=== PATIENT | female | born 1975 | race African-American/Black ===

== ENCOUNTER 2024-03-03 14:19 | Day surgery (SDC) | payer OTHER ==
[2024-03-03] MEDS ORDERED: Depo-Medrol 40 MG/ML IM ONE (14:20)
[2024-03-03] MEDS ORDERED: BUPIVACAINE 0.5% VIAL IJ ONE (14:20)
[2024-03-03] MEDS ORDERED: XYLOCAINE-MPF 1% 5ML SDV IJ ONE (14:20)
--- NOTE | 2024-03-03 16:57 | XRAY ---
Indication: Right shoulder injection. Intraoperative fluoroscopy provided for 2 seconds. 2 digital spot images submitted for interpretation demonstrates needle tip projecting over the right glenohumeral joint superiorly. Small amount of contrast injected for needle tip placement. Correlate with intraoperative findings/report.
--- NOTE | 2024-03-04 09:26 | XRAY ---
7 seconds of fluoroscopy was used in surgery for a right intra-articular shoulder injection.
== END 2024-03-03 16:50 | disposition home or self-care (01) ==
LOC: SDC-PAIN 14:19
PROVIDERS: ATTEND Psychiatry & Neurology Pain Medicine
DX: M19.011 Primary osteoarthritis, right shoulder (principal)
CPT/HCPCS: 20610; 73030; 77002; J1010; Q9966

== ENCOUNTER 2024-06-23 14:12 | Day surgery (SDC) | payer OTHER ==
[2024-06-23] MEDS ORDERED: Sodium Chloride 0.9(Preservative Free) 10 ML IJ ONE (14:13)
[2024-06-23] MEDS ORDERED: Depo-Medrol 40 MG/ML IM ONE (14:13)
[2024-06-23] MEDS ORDERED: LIDOCAINE HCL 1% AMPUL 5 ML IJ ONE (14:13)
[2024-06-23] MEDS ORDERED: DIPRIVAN 200 MG/20 ML IV ONE (15:28)
--- NOTE | 2024-06-23 16:40 | XRAY ---
Indication: Lumbar MIGDALIA. Intraoperative fluoroscopy provided for 19 seconds. 2 digital spot image submitted for interpretation demonstrates posterior needle tip projecting posterior to lumbosacral junction interspace. Small amount of contrast injected for needle tip placement. Correlate with intraoperative findings/report.
--- NOTE | 2024-06-23 16:57 | XRAY ---
19 seconds of fluoroscopy was used in surgery for a lumbar MIGDALIA.
[2024-06-23] MEDS ORDERED: Lactated Ringers 1,000 ML IV ONE (18:04)
== END 2024-06-23 16:22 | disposition home or self-care (01) ==
LOC: SDC-PAIN 14:12
PROVIDERS: ATTEND Psychiatry & Neurology Pain Medicine
DX: M54.16 Radiculopathy, lumbar region (principal)
CPT/HCPCS: 62323; 72100; 77003; J2704; Q9966

== ENCOUNTER 2024-07-29 11:33 | Day surgery (SDC) | payer OTHER ==
[2024-07-29] MEDS ORDERED: Xylocaine-Mpf 2% 5 Ml Vial IJ ONE (11:34)
[2024-07-29] MEDS ORDERED: DIPRIVAN 200 MG/20 ML IV ONE (12:49)
--- NOTE | 2024-07-29 14:42 | XRAY ---
Indication: Bilateral L4-S1 MBB. Intraoperative fluoroscopy provided for 24 seconds. Single digital spot image submitted for interpretation demonstrates posterior needle tips projecting over expected left and right L4-S1 nerve roots. Correlate with intraoperative findings/report.
--- NOTE | 2024-07-29 14:45 | XRAY ---
24 seconds of fluoroscopy was used in surgery for a bilateral L4-S1 MBB.
== END 2024-07-29 13:25 | disposition home or self-care (01) ==
LOC: SDC-PAIN 11:33
PROVIDERS: ATTEND Psychiatry & Neurology Pain Medicine
DX: M47.816 Spondylosis without myelopathy or radiculopathy, lumbar region (principal)
CPT/HCPCS: 64493; 64494; 72020; 77002; J2704

== ENCOUNTER 2024-09-29 11:05 | Day surgery (SDC) | payer OTHER ==
[2024-09-29] MEDS ORDERED: BUPIVACAINE 0.5% VIAL IJ ONE (11:06)
[2024-09-29] MEDS ORDERED: propofoL IV ONE ×2 (12:10→12:22)
--- NOTE | 2024-09-29 14:39 | XRAY ---
Indication: Bilateral L4-S1 MBB. Intraoperative fluoroscopy provided for 32 seconds. Single digital spot image submitted for interpretation demonstrates posterior needle tips projecting over the expected left and right L4-S1 nerve roots. Correlate with intraoperative findings/report.
--- NOTE | 2024-09-29 14:51 | XRAY ---
32 seconds of fluoroscopy was used in surgery for a bilateral L4-S1 MBB.
== END 2024-09-29 12:53 | disposition home or self-care (01) ==
LOC: SDC-PAIN 11:05
PROVIDERS: ATTEND Psychiatry & Neurology Pain Medicine
DX: M47.816 Spondylosis without myelopathy or radiculopathy, lumbar region (principal)
CPT/HCPCS: 64493; 64494; 72020; 77002; J2704

== ENCOUNTER 2024-10-28 10:57 | Day surgery (SDC) | payer OTHER ==
[2024-10-28] MEDS ORDERED: LIDOCAINE HCL 1% AMPUL 5 ML IJ ONE (10:58)
[2024-10-28] MEDS ORDERED: Depo-Medrol 40 MG/ML IM ONE (10:58)
[2024-10-28] MEDS ORDERED: BUPIVACAINE 0.5% VIAL IJ ONE (10:58)
[2024-10-28] MEDS ORDERED: Lactated Ringers 500 ML IV ONE (11:12)
[2024-10-28] MEDS ORDERED: propofoL IV ONE (12:49)
--- NOTE | 2024-10-28 14:31 | XRAY ---
Indication: Right L4-S1 RFA. Intraoperative fluoroscopy provided for 17 seconds. 5 digital spot image submitted for interpretation demonstrates posterior needle tips projecting over expected right L4-S1 nerve roots. Correlate with intraoperative findings/report.
--- NOTE | 2024-10-28 14:47 | XRAY ---
17 seconds of fluoroscopy was used in surgery for a right L4-S1 RFA.
== END 2024-10-28 13:30 | disposition home or self-care (01) ==
LOC: SDC-PAIN 10:57
PROVIDERS: ATTEND Psychiatry & Neurology Pain Medicine
DX: M47.816 Spondylosis without myelopathy or radiculopathy, lumbar region (principal)
CPT/HCPCS: 64635; 64636; 72100; 77002; J2704

== ENCOUNTER 2024-11-03 11:12 | Day surgery (SDC) | payer OTHER ==
[2024-11-03] MEDS ORDERED: LIDOCAINE HCL 1% AMPUL 5 ML IJ ONE (11:13)
[2024-11-03] MEDS ORDERED: methylPREDNISolone acetate IM ONE (11:13)
[2024-11-03] MEDS ORDERED: BUPIVACAINE 0.5% VIAL IJ ONE (11:13)
[2024-11-03] MEDS ORDERED: Lactated Ringers 500 ML IV ONE (11:15)
[2024-11-03] MEDS ORDERED: propofoL IV ONE (12:38)
[2024-11-03] MEDS ORDERED: TYLENOL EXTRA STRENGTH 500 MG ONE (13:04)
--- NOTE | 2024-11-03 14:18 | XRAY ---
Indication: Left L4-S1 RFA. Intraoperative fluoroscopy provided for 23 seconds. 3 digital spot images submitted for interpretation demonstrates posterior needle tips project over expected left L4-S1 nerve roots. Correlate with intraoperative findings/report.
--- NOTE | 2024-11-03 14:57 | XRAY ---
23 seconds of fluoroscopy was used in surgery for a left L4-S1 RFA.
== END 2024-11-03 13:12 | disposition home or self-care (01) ==
LOC: SDC-PAIN 11:12
PROVIDERS: ATTEND Psychiatry & Neurology Pain Medicine
DX: M47.817 Spondylosis without myelopathy or radiculopathy, lumbosacral region (principal)
CPT/HCPCS: 64635; 64636; 72100; 77002; J1010; J2704; A9270-GY

== ENCOUNTER 2024-12-30 11:24 | Day surgery (SDC) | payer OTHER ==
[2024-12-30] MEDS ORDERED: BUPIVACAINE 0.5% VIAL IJ ONE (11:25)
[2024-12-30] MEDS ORDERED: Depo-Medrol 40 MG/ML IM ONE (11:25)
[2024-12-30] MEDS ORDERED: propofoL IV ONE (12:53)
--- NOTE | 2024-12-30 19:25 | XRAY ---
31 seconds of fluoroscopy was used in surgery for a bilateral sacroiliac joint injection.
--- NOTE | 2024-12-30 19:47 | XRAY ---
Indication: Bilateral SI joints injection. Intraoperative fluoroscopy provided for 31 seconds. 2 digital spot image submitted for interpretation demonstrates posterior needle tips projecting over left and right SI joints. Small amount of contrast injected for needle tip placement. Correlate with intraoperative findings/report.
== END 2024-12-30 13:28 | disposition home or self-care (01) ==
LOC: SDC-PAIN 11:24
PROVIDERS: ATTEND Psychiatry & Neurology Pain Medicine
DX: M46.1 Sacroiliitis, not elsewhere classified (principal); M53.3 Sacrococcygeal disorders, not elsewhere classified
CPT/HCPCS: 27096; 72202; J2704; Q9966

== ENCOUNTER 2025-06-15 14:12 | Day surgery (SDC) | payer MEDICAID ==
[2025-06-15] MEDS ORDERED: Sodium Chloride 0.9(Preservative Free) 10 ML IJ ONE (14:13)
[2025-06-15] MEDS ORDERED: methylPREDNISolone acetate IM ONE (14:13)
[2025-06-15] MEDS ORDERED: LIDOCAINE HCL 1% 50 MG/5 ML VL IJ ONE (14:13)
[2025-06-15] MEDS ORDERED: propofoL IV ONE (16:22)
[2025-06-15] MEDS ORDERED: MORPHINE SULFATE 2 MG INJ ONE ×2 (16:40→16:54)
[2025-06-15] MEDS ORDERED: Lactated Ringers 1,000 ML IV ONE (18:13)
--- NOTE | 2025-06-15 19:52 | XRAY ---
Indication: Lumbar MIGDALIA. Intraoperative fluoroscopy provided for 10 seconds. 3 digital spot images submitted for interpretation demonstrates posterior needle tip projecting just posterior to L4-L5 interspace. Small amount of contrast injected for needle tip placement. Correlate with intraoperative findings/report.
--- NOTE | 2025-06-16 10:17 | XRAY ---
10 seconds of fluoroscopy used in surgery for a lumbar MIGDALIA.
== END 2025-06-15 17:20 | disposition home or self-care (01) ==
LOC: SDC-PAIN 14:12
PROVIDERS: ATTEND Psychiatry & Neurology Pain Medicine
DX: M54.16 Radiculopathy, lumbar region (principal)